=== PATIENT | female | born 1970 | race Caucasian/White ===

== ENCOUNTER 2016-08-01 21:57 | Emergency (ER) | payer MEDICAID ==
[~2016-08-01] VITALS: Ht 320 cm; Wt 72.6 kg
[~2016-08-01 21:57] MED LIST: FLINTSTONES1 CTB OR; IBUPROFEN200 MG PO; MOTRIN 400MG.400 MG PO; MOTRIN400 MG PO; NICOTINE T21 MG/24 H TD; NOMEDS XX; PERCOCET 5/3251 EACH PO; SENNA DOCUSATE1 TAB PO
[2016-08-01 22:22] LABS: URINE BILIRUBIN - DIPSTICK NEGATIVE (NEG); URINE BLOOD NEGATIVE (NEG)
--- NOTE | 2016-08-01 22:34 | Emergency Room Report ---
History of Present Illness Time Seen by [id number] Presenting Problem in Triage Pt arrived:Walked Presenting Problem:PT C/O RIGHT SIDE ABD PAIN. PT ADVISES THAT IT IS INTERMITENT "SHOOTING" PAINS. PT C/O NAUSEA AND "GASSY" BUT NO VOMITING OR TROUBLES WITH ELIMINATION. PT ADVISES THAT THE PAINS BEGAN AROUND 0500 TODAY. PT ALSO STATES THAT IF SHE DRAWS HER RIGHT LEG UP TO HER ABD, THE PAIN LESSENS Onset of symptoms date/time:/ or onset unknown for:MEDICAL HX UNKNOWN Treatment Prior to Arrival: [employer] Provided by: Sepsis Risk Assessment: Temp: 98.5 B/P: 155/96 MAP: 115 Pulse: 97 Resp: 18 Recent fever? N Clinical Suspician of Infection? N Mental Status: 1 - Regular (Normal Baseline) Sepsis Risk:Low Sepsis Risk Have you (or family members/close friends) recently traveled outside the [place]? N If Yes, where/when: Have you had exposure to infectious disease within the past month? N TB? Other? Specify: Source patient, RN notes reviewed, family, old records Exam Limitations no limitations Comment rt sided abd pain today with no fever or rash and no trauma Cardiac Chest Pain Chest pain indicative of cardiac No Timing/Duration this evening Severity moderate ALLERGIES Coded Allergies: Penicillins (S-DIFF. BREATHING 05/23/16) codeine (S-DIFF. BREATHING 05/23/16) Home Medications Active Scripts Nicotine (Nicotine Patch) 21 MG TD DAILY #14 PATCH Ref 1 Prov: 05/24/16 Oxycodone 5MG/[id number] (Oxycodone-Acetaminophen 5-325) 1-2 TAB PO Q4HP PRN MODERATE TO SEVERE PAIN #30 TAB Prov: 05/24/16 Reported Medications No Home Medications (NO HOME MEDICATIONS) 1 EACH XX ONCE History Medical History General CAD? No Angina: No NV: No Hypertension? No Hyperlipidemia? No CHF? No DVT? No PE? No COPD? No Asthma? No Anemia? No GERD? No Gastric ulcers? No GI Bleed? No Hernia? No Thyroid Problems? No Hypothyroidism? No CVA? No Seizures? No Diabetes? No Renal Insuffiency? No End Stage Renal Disease? No UTI? No Stones? No BPH? No GB Disease: Yes Nephritic Syndrome? No Asplenia? No Hepatitis? No Sickle Cell Disease? No Arthritis? No Migraines? No Cataracts? No Glaucoma? No MRSA? No HIV? No TB? No Anxiety? No Depression? No Cancer? No More? 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 Respiratory denies cough, denies shortness of breath, denies wheezing Cardiovascular denies chest pain, denies palpitations, denies syncope Gastrointestinal see HPI, abdominal pain, denies vomiting Genitourinary denies: dysuria, frequency, hesitancy, hematuria. Musculoskeletal denies back pain Skin denies rash Psychiatric/Neurological denies headache, denies seizure Physical Exam Vital Signs Vital Signs Date Time Temp Pulse Resp B/P Pulse O2 O2 Flow FiO2 Ox Delivery Rate 08/01 2251 18 08/01 2202 98.5 97 18 155/96 100 - WBC >12,000 or <4,000 or 10% bands? 2 or more SIRS Criteria Met? B/P:155/96 MAP:115 Creatinine >2.0? UA output<0.5ml/kg/hr for 2 hrs? Platelet count >100,000? Lactate >2.0mmol/1? INR >1.2 or PTT > than 60 sec? Evidence of Organ Dysfunction? Provider documented clinical suspician of infection? N Sepsis Criteria Count: 1 Sepsis Risk: Low Sepsis Risk General Appearance no apparent distress Eye Exam - bilateral eye PERRL, bilateral eye EOMI Ear, Nose, Throat normal ENT inspection Neck supple Respiratory Status No: respiratory distress. Cardiovascular regular rate/rhythm Peripheral Pulses Pulses normal Yes Gastrointestinal soft, no organomegaly, no pulsatile mass, no guarding, no rebound Back no CVA tenderness Extremities normal inspection Strength 4 Upper Ext (L), 4 Upper Ext (R), 4 Lower Ext (L), 4 Lower Ext (R) Neurologic alert, weed thinner II-XII nml as tested Reflexes Reflexes normal Yes Mental status normal mood/affect Skin no rash cons.w/shingles Medical Decision Making LABS/Meds/Orders Pt receiving controlled substance in ED? No Results/Orders Laboratory Tests 08/01/162249: Sodium 141, Potassium 3.4 L, Chloride 102, Carbon Dioxide 31, BUN 7, Creatinine 0.7, Estimated Creat Clear 118, Estimated GFR (MDRD) 91, Glucose 106, Calcium 8.3 L, Total Bilirubin 0.2, AST 18, ALT 38, Alkaline Phosphatase 108, Total Protein 7.8, Albumin 3.9, Globulin 3.9 H, Albumin/Globulin Ratio 1.0 L, Amylase 30, Lipase 162, WBC 9.6, RBC 4.81, Hgb 14.3, Hct 42.1, MCV 87.5, RDW 13.8, Plt Count 265, MPV 9.8, Gran % 43.0, Gran # 4.1, Lymphocytes % 47.9, Monocytes % 4.6, Eosinophils % 3.2, Basophils % 1.2, Lymphocytes # 4.6 H, Monocytes # 0.4, Eosinophils # 0.3, Basophils # 0.1, PUBS MCHC 33.8, MCH 29.6 08/01/162214: Urine Color YELLOW, Urine Appearance CLEAR, Urine pH 7.5, Ur Specific Electra 1.015, Urine Protein NEGATIVE, Urine Ketones NEGATIVE, Urine Blood NEGATIVE, Urine Nitrate NEGATIVE, Urine Bilirubin NEGATIVE, Urine Urobilinogen 1.0, Ur Leukocyte Esterase TRACE H, Urine WBC 3-5, Ur Squamous Epith Cells 5-10, Urine Bacteria 2+, Urine Glucose NEGATIVE Current Medication Orders Sig/Jessica Start time Last Medication Dose Route Stop Time Status Admin Sodium Chloride 1,000 ML .STK-MED ONE 08/01 2243 DC IV Ketorolac 0 .STK-MED ONE 08/01 2242 DC Tromethamine .ROUTE Ondansetron HCl 0 .STK-MED ONE 08/01 2242 DC .ROUTE Ketorolac 30 MG ONCE ONE 08/01 2214 DC 08/01 Tromethamine IV 08/01 2215 225 Ondansetron HCl 4 MG ONCE ONE 08/01 2214 DC 08/01 IV 08/01 2215 225 Sodium Chloride 10 ML PRN PRN 08/01 2214 AC IV 08/02 2213 Sodium Chloride 1,000 ML .Q1H1M 08/01 2214 DC 08/01 IV 08/015 2250 Sodium Chloride 10 ML PRN PRN 08/01 2214 AC IV 08/02 2213 Orders Procedure Date/time Status DIET-NOTHING BY MOUTH 08/[address] ABD & PELVIS W/O CONTRAST 08/[address] ABD/PELVIS REQ 08/01 2214 Complete IV SALINE LOCK 08/01 2214 Active CULTURE, URINE 08/01 2214 Active URINALYSIS/COMPLETE 08/01 2214 Complete LIPASE 08/01 2214 Complete CBC WITH AUTO DIFF 08/01 2214 Complete CHEM 12 PROFILE 08/01 2214 Complete AMYLASE 08/01 2214 Complete XRAY/CT/US XRAY/CT/US CT abdomen, pelvis CT interpretation by discussed w/radiologist Time results known: 2319 CT Results normal/NAD Departure Departure Time of Disposition 2319 Disposition DC Home or Self Care(routine) Clinical Impression Primary Impression: Abdominal pain Qualifiers: Abdominal location: right lower quadrant Qualified Code: R10.31 - Right lower quadrant pain Condition STABLE Referrals ASHLYN CARMICHAEL (Family) Patient Instructions DI for Abdominal Pain-Adult Additional Instructions call in am Discharge Counseling Counseled pt/family regarding diagnosis, test results, follow up needs ED Critical Care Critical Care No at 2321
[2016-08-01 22:55] LABS: LYMPH # 4.6 K/mm3 (0.7-4.5); LYMPH % 47.9 % (10-50.0)
[2016-08-01 23:00] LABS: HEMOGLOBIN 14.3 g/dL (12.2-16.2)
[2016-08-01 23:48] VITALS: BP 139/78
--- NOTE | 2016-08-02 05:45 | RADIOLOGY REPORT PS360 ---
CT ABD PELVIS W/O CONTRAST CLINICAL INDICATION: Right lower quadrant pain ABDOMEN PAIN COMPARISON: None TECHNIQUE: Axial images obtained with sagittal and coronal reformats. PROCEDURE: Oral Contrast: None IV Contrast: None . FINDINGS: Lower thorax: No acute finding ABDOMEN: Liver: No masses or biliary dilatation. Gallbladder: Cholecystectomy. No biliary dilatation Pancreas: No masses or peripancreatic fluid collections. Spleen: Unremarkable. Adrenals: Unremarkable Kidneys/ureters: No masses. No renal calculi. No hydronephrosis. No perinephric fluid collections. No ureteral dilatation or obvious ureteral calculi. PELVIS: Reproductive: Hysterectomy Bladder: Nondistended. No obvious stones or masses. Appendix: No evidence of appendicitis. ABDOMEN & PELVIS: Stomach bowel: Moderate amount retained colonic feces. There are multiple unopacified bowel loops present within the abdomen/pelvis which could obscure or mimic pathology. If symptoms persists, consider repeating exam with IV and oral contrast administration Peritoneum: No abnormal fluid collections. No obvious inflammatory changes. No free air. Lymph nodes: No enlarged lymph nodes apparent. Abdominal wall: There is a small right-sided spigelian hernia containing fat with some stranding of the fat suggesting underlying inflammation Vasculature: No evidence of abdominal aortic aneurysm. No retroperitoneal hemorrhage evident. Bones: 'S IMPRESSION: 1. Negative appendix. No obstructing ureteral calculi. 2. Small right spigelian hernia containing fat with some mild inflammatory stranding
== END 2016-08-01 23:48 | disposition home or self-care (01) ==
LOC: ER 21:57
PROVIDERS: Emergency Medicine
DX: R10.31 Right lower quadrant pain (principal); Z72.0 Tobacco use
CPT/HCPCS: J2405